=== PATIENT | male | born 1990 | race African-American/Black ===

== ENCOUNTER 2017-06-03 16:05 | Emergency (ER) | payer SELFPAY ==
[~2017-06-03] VITALS: Ht 177.8 cm; Wt 122.0 kg
[~2017-06-03 16:05] MED LIST: FAMO20TA8 PO
[2017-06-03 16:20] VITALS: BP 143/82
== END 2017-06-04 | disposition left against medical advice (07) ==
LOC: ER 17:48
DX: Z53.21 Procedure and treatment not carried out due to patient leaving prior to being seen by health care provider (principal)